=== PATIENT | male | born 1985 | race Caucasian/White ===

== ENCOUNTER 2017-10-22 11:55 | Emergency (ER) | payer OTHER ==
[~2017-10-22] VITALS: Ht 193 cm; Wt 74.8 kg
[~2017-10-22 11:55] MED LIST: Albenza200 MG PO; CEPH500 PO; CLIN300 PO; METO10 PO; NAPR500 PO; Norco 5-325 Ta1 EACH PO; OXYACE5T PO; PROM25S PR; PYRA250T PO; SULTRIDS PO
== END 2017-10-22 12:29 | disposition home or self-care (01) ==
LOC: ER 11:55
DX: L02.511 Cutaneous abscess of right hand (principal); Z79.899 Other long term (current) drug therapy; F17.200 Nicotine dependence, unspecified, uncomplicated
CPT/HCPCS: 10060; 99283

== ENCOUNTER → 2019-10-06 | Outpatient (CLI) | payer OTHER ==
[2019-10-06 14:28] LABS: BASOPHILS ABSOLUTE AUTO 0.04 K/mm3 (0.00-0.23); BASOPHILS PERCENT AUTO 1 % (0-2); EOSINOPHILS ABSOLUTE AUTO 0.05 K/mm3 (0.00-0.68); EOSINOPHILS PERCENT AUTO 1 % (0-6); Hematocrit 44.5 % (37.0-53.0); Hemoglobin 15.6 g/dL (13.5-17.5); IMMATURE GRAN ABSOLUTE AUTO 0.01 K/mm3 (0.00-0.10); IMMATURE GRAN PERCENT AUTO 0 % (0-1); LYMPHOCYTES ABSOLUTE AUTO 1.51 K/mm3 (0.84-5.20); LYMPHOCYTES PERCENT AUTO 29 % (21-46); MONOCYTES ABSOLUTE AUTO 0.48 K/mm3 (0.16-1.47); MONOCYTES PERCENT AUTO 9 % (4-13); Mean Corpuscular HGB 32.5 pg (26.0-34.0); Mean Corpuscular HGB Conc 35.1 g/dL (31.5-36.5); Mean Corpuscular Volume 93 fL (80-100); Mean Platelet Volume 9.6 fL (9.1-12.4); NEUTROPHILS ABSOLUTE AUTO 3.11 K/mm3 (1.96-9.15); NEUTROPHILS PERCENT AUTO 60 % (41-73); Platelet Count 284 K/mm3 (150-400); RDW Coefficient Variation 11.9 % (11.7-14.2)
[2019-10-06 14:47] LABS: Alanine Aminotransfer (ALT/SGP 20 U/L (12-78); Albumin, Blood 4.2 g/dL (3.4-5.0); Albumin/Globulin Ratio 1.1 (0.8-1.8); Alk Phos 71 U/L (40-126); Anion Gap 11 mmol/L (6-16); Aspartate Aminotrans (AST/SGOT 17 U/L (12-37); Bilirubin, Total 0.3 mg/dL (0.1-1.0); Blood Urea Nitrogen 9 mg/dL (8-24); Bun/Creatinine Ratio 10.5 (12.0-20.0); CO2, Blood 26 mmol/L (21-32); Calcium, Blood 9.1 mg/dL (8.5-10.1); Chloride, Blood 104 mmol/L (98-108); Creatinine, Blood 0.86 mg/dL (0.60-1.20); Globulin, Blood 3.7 g/dL (2.2-4.0); Glomerular Filtration Rate >60 (60-); Glucose, Blood 104 mg/dL (70-99); Sodium, Blood 141 mmol/L (136-145); Thyroid Stimulating Hormone 0.732 uIU/mL (0.360-4.800); Total Protein, Blood 7.9 g/dL (6.4-8.2)
== END | disposition home or self-care (01) ==
LOC: LAB EV 14:24 → LAB SHORT 14:24
PROVIDERS: Physician Assistant
DX: R53.83 Other fatigue (principal); R03.0 Elevated blood-pressure reading, without diagnosis of hypertension
CPT/HCPCS: 80053; 83690; 84443; 85025

== ENCOUNTER 2020-08-10 14:53 | Emergency (ER) | payer OTHER ==
[~2020-08-10] VITALS: Ht 193 cm; Wt 78.0 kg
[2020-08-10] MEDS ORDERED: LISI20 PO ×2 (17:06→17:10)
== END 2020-08-10 17:19 | disposition home or self-care (01) ==
LOC: ER 14:53
DX: I95.9 Hypotension, unspecified (principal); F17.200 Nicotine dependence, unspecified, uncomplicated; Z79.899 Other long term (current) drug therapy
CPT/HCPCS: 93005; 93010; 99283-25

== ENCOUNTER 2020-08-11 20:50 | Emergency (ER) | payer OTHER ==
[~2020-08-11] VITALS: Ht 193 cm; Wt 78.0 kg
[~2020-08-11 20:50] MED LIST changes: +LISI20 PO
== END 2020-08-12 00:46 | disposition left against medical advice (07) ==
LOC: ER 20:50
DX: Z53.21 Procedure and treatment not carried out due to patient leaving prior to being seen by health care provider (principal)

== ENCOUNTER 2020-08-12 05:12 | Emergency (ER) | payer OTHER ==
[~2020-08-12] VITALS: Ht 193 cm; Wt 78.0 kg
== END 2020-08-12 06:00 | disposition home or self-care (01) ==
LOC: ER 05:12
DX: Z00.00 Encounter for general adult medical examination without abnormal findings (principal); F17.200 Nicotine dependence, unspecified, uncomplicated; Z79.899 Other long term (current) drug therapy
CPT/HCPCS: 96372; 99284-25; J1630

== ENCOUNTER 2020-08-13 22:03 | Emergency (ER) | payer OTHER | END 2020-08-13 23:30 | disposition left against medical advice (07) | LOC: ER 22:03 | DX: Z53.21 Procedure and treatment not carried out due to patient leaving prior to being seen by health care provider (principal) ==

== ENCOUNTER → 2024-05-18 | Outpatient (CLI) | payer MEDICAID ==
[2024-05-18 11:20] LABS: Bilirubin, Total 0.4 mg/dL (0.1-1.0); Calcium, Blood 9.5 mg/dL (8.5-10.1); Globulin, Blood 4.2 g/dL (2.2-4.0); Magnesium, Blood 2.2 mg/dL (1.6-2.4); Potassium, Blood 4.5 mmol/L (3.5-5.5); Total Protein, Blood 8.2 g/dL (6.4-8.2)
== END | disposition home or self-care (01) ==
LOC: LAB 10:52 → LAB SHORT 10:52
DX: R25.2 Cramp and spasm (principal)
CPT/HCPCS: 80053; 83735